=== PATIENT | male | born 1950 | race Caucasian/White ===

== ENCOUNTER → 2020-09-18 14:16 | Outpatient (REF) | payer MEDICARE, SELFPAY | LOC: ANHLAB 14:16 | PROVIDERS: PCP Internal Medicine; Visit Provider Nurse Practitioner | DX: C44.519 Basal cell carcinoma of skin of other part of trunk (principal) | CPT/HCPCS: 88305 ==

== ENCOUNTER → 2020-11-10 07:58 | Outpatient (REF) | payer MEDICARE, SELFPAY | LOC: ANHLAB 07:58 | PROVIDERS: PCP Internal Medicine; Visit Provider Nurse Practitioner | DX: C44.519 Basal cell carcinoma of skin of other part of trunk (principal) | CPT/HCPCS: 88305; 88331 ==

== ENCOUNTER 2021-07-06 14:03 | Outpatient (CLI) | payer MEDICARE, SELFPAY | END 2021-07-06 14:04 | disposition home or self-care (01) | PROVIDERS: PCP Internal Medicine; Visit Provider Internal Medicine | DX: H90.3 Sensorineural hearing loss, bilateral (principal) | CPT/HCPCS: 92557; 92567 ==

== ENCOUNTER 2022-04-12 08:00 | Outpatient (NON) | payer MEDICARE, SELFPAY | END 2022-04-12 08:01 | disposition home or self-care (01) | LOC: ANHLAB 04-13 14:33 | PROVIDERS: PCP Family Medicine; Visit Provider Nurse Practitioner | DX: C44.602 Unspecified malignant neoplasm of skin of right upper limb, including shoulder (principal) | CPT/HCPCS: 88305 ==

== ENCOUNTER 2022-04-19 10:26 | Outpatient (CLI) | payer MEDICARE, SELFPAY ==
[2022-04-19 19:08] LABS: Basophils Absolute Auto 0.1 K/mm3 (0.0-0.1); Basophils Percent Auto 1.1 % (0.2-1.2); Eosinophils Absolute Auto 0.2 K/mm3 (0-0.3); Hematocrit 46.8 % (42.0-52.0); Hemoglobin 15.8 g/dL (14.0-18.0); Immature Granulocyte Absolute 0.02 K/mm3 (0.00-0.031); Immature Granulocyte Percent A 0.3 % (0-0.5); Lymphocytes Absolute Auto 2.55 K/mm3 (0.9-3.2); Lymphocytes Percent Auto 38.7 % (18.3-44.2); Mean Corpuscular HGB Conc 33.8 g/dl (32-36); Mean Corpuscular Hemoglobin 30.9 pg (26-34); Mean Corpuscular Volume 91.4 fl (80-100); Mean Platelet Volume 9.2 fl (7.4-10.4); Monocytes Absolute Auto 0.5 K/mm3 (0.1-0.6); Monocytes Percent Auto 7.3 % (2.6-8.5); Neutrophils Absolute Auto 3.3 K/mm3 (1.3-6.7); Neutrophils Percent Auto 49.6 % (45.5-73.1); Platelet Count Result 285 k/mm3 (150-375); Red Blood Count 5.12 M/mm3 (4.6-6.20); Red Cell Distribution Width 12.9 % (11.5-14.5); White Blood Count 6.6 K/mm3 (4.5-10.0)
[2022-04-19 19:24] LABS: Alanine Aminotransferase 35 U/L (6-50); Alkaline Phosphatase 75 U/L (38-126); Anion Gap 5 mmol/L (8-16); Aspartate Amino Transferase 36 U/L (17-59); Bilirubin,Total 0.8 mg/dL (0.2-1.3); Blood Urea Nitrogen 15 mg/dL (9-20); Calcium 8.5 mg/dL (8.4-10.2); Carbon Dioxide 32 mmol/L (22-30); Chloride 101 mmol/L (98-107); Cholesterol 123 mg/dL (0-200); Estimated Glomerular Filt Rate > 60; Glucose 109 mg/dL (65-110); HDL Direct 37 mg/dL; Potassium 4.1 mmol/L (3.4-5.0); Sodium 138 mmol/L (137-145); Triglycerides 78 mg/dL (<150); Uric Acid 4.9 mg/dL (3.5-8.5)
[2022-04-19 19:38] LABS: LDL Cholesterol Direct 64 mg/dL
[2022-04-19 19:56] LABS: Prostate Specific Antigen 0.2 ng/mL (< OR = 4.0)
[2022-04-24 19:45] LABS: Testosterone Free 69.9 pg/mL (30.0-135.0); Testosterone Total 402 ng/dL (250-1100)
== END 2022-04-19 10:27 | disposition home or self-care (01) ==
LOC: ANHGOSHLAB 10:28
PROVIDERS: PCP Family Medicine; Visit Provider Family Medicine
DX: I10 Essential (primary) hypertension (principal); Z12.5 Encounter for screening for malignant neoplasm of prostate; M10.9 Gout, unspecified; E78.5 Hyperlipidemia, unspecified; R53.83 Other fatigue
CPT/HCPCS: 36415; 80053; 80061; 84153; 84402; 84403; 84550; 85025; G0103

== ENCOUNTER 2022-05-24 12:59 | Outpatient (NON) | payer MEDICARE, SELFPAY | END 2022-05-24 13:00 | disposition home or self-care (01) | PROVIDERS: PCP Family Medicine; Visit Provider Nurse Practitioner | DX: C44.612 Basal cell carcinoma of skin of right upper limb, including shoulder (principal) | CPT/HCPCS: 88305; 88331; 88332 ==

== ENCOUNTER 2022-09-07 11:59 | Outpatient (NON) | payer MEDICARE, SELFPAY | END 2022-09-07 12:00 | disposition home or self-care (01) | PROVIDERS: PCP Family Medicine; Visit Provider Nurse Practitioner | DX: C44.311 Basal cell carcinoma of skin of nose (principal) | CPT/HCPCS: 88305 ==

== ENCOUNTER 2022-09-20 13:07 | Outpatient (NON) | payer MEDICARE, SELFPAY | END 2022-09-20 13:08 | disposition home or self-care (01) | LOC: ANHLAB 13:08 | PROVIDERS: PCP Family Medicine; Visit Provider Nurse Practitioner | DX: C44.311 Basal cell carcinoma of skin of nose (principal) | CPT/HCPCS: 88305; 88331 ==

== ENCOUNTER 2023-10-31 15:41 | Emergency (ER) | payer MEDICARE, SELFPAY ==
[2023-10-31 15:56] VITALS: BP 132/79; PULSE 55; RESP 16; TEMP 36.4; O2SAT 97
--- NOTE | 2023-10-31 15:58 | ED.URI ---
HPI - URI/Sore Throat General Chief Complaint: Upper Respiratory Infection Stated Complaint: SORE THROAT Time Seen by Provider: 10/31/23 15:59 Source: patient, RN notes reviewed and old records reviewed Mode of arrival: ambulatory Limitations: no limitations History of Present Illness HPI Narrative: 73 year old male [facility] with complaints of having a sore throat with some blistery sores in his mouth on the back of his tongue for the pat 2 days. Patient reports about 8 days ago he had a sore throat and felt bad which lasted for 2 days and then went away till the sore throat returned 2 days ago. Patient reports no fevers or chills and has not taken any OTC medication for his symptoms. MD elicited complaint: sore throat and other (lesions on tongue) Onset (ago): day(s) (2) Severity: mild Pain scale (0-10): 2 Able to tolerate fluids by mouth: Yes Treatments prior to arrival: none Related Data Home Medications Medication Instructions Recorded Confirmed famciclovir 500 mg tablet 500 mg PO TID PRN Cold Sores 10/31/23 10/31/23 Allergies Allergy/AdvReac Type Severity Reaction Status Date / Time Penicillins Allergy Mild Rash Verified 10/31/23 15:50 Review of Systems Review of Systems: CONSTITUTIONAL: Denies malaise, chills, sweats, or fever. EYES: Denies visual changes, redness, or discharge. ENT: Reports no rhinorrhea, congestion, sinus pain, no otalgia and positive for sore throat and lesions on back of tongue. CARDIOVASCULAR: Denies chest pain, palpitations, or edema. RESPIRATORY: Reports cough.? Denies dyspnea. GASTROINTESTINAL: Denies abdominal pain, nausea, vomiting, diarrhea SKIN: Denies rash or itching. MUSCULOSKELETAL: Denies myalgia. NEUROLOGIC: Denies headache. All systems reviewed & are unremarkable except as noted in HPI and below PMFSH Past Medical History Medical History Gout, unspecified High cholesterol History of basal cell carcinoma (BCC) left faith removed and from back HTN (hypertension) Screening for thyroid disorder Surgical History Surgical History H/O uvulectomy History of tonsillectomy Family History Family History Mother Hypertension Sibling Patient's sister is in good health Father Family history of diabetes mellitus in first degree relative, Onset Age: 75 Family history of heart disease in male family member before age 55, Onset Age: 75 Patient's father is , Onset Age: 75 Other Asthma Diabetes mellitus Family history of cardiovascular disease Family history of osteoporosis Social History Social History Social History: caffeine 10oz coffee Smoking status: Never smoker Second hand tobacco smoke exposure: No Alcohol intake: current Drinks per week: 15 Alcohol use details: wine, beer, bourbon Substance use: never Substance use type: does not use Do You Feel Safe in your Home?: Yes Lack of Transportation: No Lack of Food: Never True Current Housing: I Have Housing Concerned About Future Housing: No Difficulty Paying Gas/Electric Bills: No Difficulty Paying for Meds: No Currently Unemployed: No Education: Bachelor's Degree Difficulty w/ Childcare or Family Care: No Comments At time of signature, agree with nursing past medical, surgical, social and family history. There is no relevant family history pertinent to the presenting complaint Exam Narrative: GENERAL: Well-appearing, well-nourished, and in no acute distress. HEAD: Normocephalic EYES: PERRLA, conjunctivae clear ENT: Nares clear, turbinates edematous and erythematous, clear discharge. Mucous membranes moist. TM pearly urrutia with dull light reflex bilaterally; no tragal tenderness. Oropharynx e
[2023-10-31 16:21] LABS: EDSTREPNEGPOS1 Presumptive Negative
== END 2023-10-31 16:20 | disposition home or self-care (01) ==
PROVIDERS: Emergency Provider Registered Nurse; PCP Family Medicine
DX: K13.70 Unspecified lesions of oral mucosa (principal); J02.9 Acute pharyngitis, unspecified; M10.9 Gout, unspecified; E78.00 Pure hypercholesterolemia, unspecified; I10 Essential (primary) hypertension; Z85.828 Personal history of other malignant neoplasm of skin
CPT/HCPCS: 87081; 87880; 99213; G0463

== ENCOUNTER 2025-01-23 00:23 | Day surgery (SDC) | payer MEDICARE, SELFPAY ==
--- OUTSIDE RECORDS SUMMARY | 2022-05-11 09:47 | XMS_ITS | Continuity of Care Document ---
Author Organization [facility] Address [address] [place] [address] Phone Care Team Providers Care Manufacturing Controller Name Role Phone Rivera Mittal PT Unavailable Unavailable Procedures Procedure Date Therapeutic Activities Neuromuscular Re-Ed Therapeutic Exercise Doc neg elder mal no plan PT Evaluation Low Complexity Therapeutic Activities Neuromuscular Re-Ed Advance Directives Directive Yes / No Effective Date File Name No Information Encounters Encounter Description Practice Location Reason(s) For Visit Diagnoses Date Provider Providers Copied on Encounter [facility], [id number], tel:[phone] [place] No Information 3 Kyrie Stafford. . [facility], [id number], [place] tel:[phone] [place] No Information 2 Ladanglkeyonna De Oliveira. . Referring Provider: Brian Shah, [address] [place], [address]. tel:[phone] [facility] [address], [id number], tel:[phone] [place] No Information 2 Kyrie Stafford. . Referring Provider: Brian Shah, [address] [facility], [place], [address]. tel:[phone] Family History Family Member Type Diagnosis Age At Onset No Information Payers Payer name Insurance type Covered republican ID Authoriza ticheryl(s) Medicare [place] MB [id number] Social History Type Description Quantity Date Captured Comments Sex Male Smoking Status No Information Chief Complaint And Reason For Visit No Information Reason For Referral Reason For Referral No Information History Of Present Illness Encounter Date Complaint History Of Prese nt Illness No Information Functional Status Date Functional Assessmen t No Information Instructions Date Instruction Additional Infor mation Giving encouragement to exercise Related to Overweight Giving encouragement to exercise Related to Overweight Assessments Type Assessment Date No Information Patient Care Teams Name Effective Dates (start - stop) Status Members No Information
[2025-01-07 14:39] VITALS: BMI 28.3
--- OUTSIDE RECORDS SUMMARY | 2025-01-23 00:27 | XMS_ITS | Encounter Summary ---
Author Organization [facility] Address [address] [place] [address] Care Team Providers Care Airplane Pilot Supervisor Name Role Phone Desean Murray MD Primary Care Provider [phone] Encounter Details Date Type Department Care Team (Late st Contact Info) Description 10/02/[address] 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
--- OUTSIDE RECORDS SUMMARY | 2025-01-23 00:27 | XMS_ITS | Encounter Summary ---
Author Organization [facility] Address [address] [place] [address] Care Team Providers Care Unemployment Specialist Name Role Phone Desean Murray MD Primary Care Provider [phone] Encounter Details Date Type Department Care Team (Late st Contact Info) Description 11/29/2000 Outpatient Historical [facility] Internal Medicine [facility] [address] [place] [address] [place] [address] [place] [address] Social History Tobacco Use Types Packs/Day Years Used Date Smoking Tobacco: Never Assessed Sex and Gender Information Value Date Recorded Sex Assigned at Not on file 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
--- OUTSIDE RECORDS SUMMARY | 2025-01-23 00:27 | XMS_ITS ---
Author Organization Unknown ENCOUNTERS Encounter Performer Location Date Diagnosis Diagnosis Status Outpatient [facility] [address] [place] [address] [phone] [place] Outpatient [facility] [address] [place] [address] [phone] [place] Outpatient [facility] [address] [place] [address] [id number] [place] Outpatient [facility] [address] [place] [address] [phone] [place] Outpatient [facility] [address] [place] [address] [phone] [place] Outpatient [facility] [address] [place] [address] [phone] [place] *Note: Encounters from your own facility or health system may be excluded. Allergies, Adverse Reactions, Alerts Allergen Type Severity Identification Date Penicillins drug allergy 2 [id number] Medications Name Date Quantity Days Supplied GPI Number
--- OUTSIDE RECORDS SUMMARY | 2025-01-23 00:27 | XMS_ITS | Encounter Summary ---
Author Organization [facility] Address 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
--- OUTSIDE RECORDS SUMMARY | 2025-01-23 00:27 | XMS_ITS | Encounter Summary ---
Author Organization [facility] Address 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
--- OUTSIDE RECORDS SUMMARY | 2025-01-23 00:27 | XMS_ITS | Encounter Summary ---
Author Organization [facility] Address 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
--- OUTSIDE RECORDS SUMMARY | 2025-01-23 00:27 | XMS_ITS | Encounter Summary ---
Author Organization [facility] Address 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
--- OUTSIDE RECORDS SUMMARY | 2025-01-23 00:27 | XMS_ITS | Encounter Summary ---
Author Organization [facility] Address [address] [place] [address] Care Team Providers Care High School Academic Coach Name Role Phone Desean Murray MD Primary Care Provider [phone] Encounter Details Date Type Department Care Team (Late st Contact Info) Description 03/22/2003 Outpatient Historical [facility] Internal Medicine [facility] [address] [place] [address] [place] [address] [place] [address] Social History Tobacco Use Types Packs/Day Years Used Date Smoking Tobacco: Never Assessed Sex and Gender Information Value Date Recorded Sex Assigned at Not on file 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
--- OUTSIDE RECORDS SUMMARY | 2025-01-23 00:27 | XMS_ITS | Clinical Summary ---
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 Gender Identity Not on file Sexual Orientation Not on file Plan of Treatment Health Maintenance Due Date Last Done Comments DTAP/TDAP/TD VACCINES (1 - Tdap) 1969 COLORECTAL SCREENING 1995 Colorectal Cancer Screening 1995 FIT-DNA Q 3 years 1995 FIT/FOBT Q 1 year 1995 Flex Sig/CT Colonography Q 5 years 1995 PNEUMOCOCCAL VACCINE 50+ YEARS (1 of 1 - PCV) 06/17/19 ZOSTER VACCINE (1 of 2) 2000 INFLUENZA VACCINE (#1) 2024 RSV VACCINE (60+ or ) (1 - 1-dose 75+ series) 2025 Care Teams Radio Communication Coordinator Relationship Specialty [place] [address] [place] [address] PCP - General 08/09/03
--- OUTSIDE RECORDS SUMMARY | 2025-01-23 00:27 | XMS_ITS | Encounter Summary ---
Author Organization [facility] Address 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
[2025-01-23 08:47] VITALS: BP 135/79; PULSE 55; RESP 17; TEMP 36.7; O2SAT 97; BMI 28.3
[2025-01-23] MEDS: LACTATED RINGERS 1,000 ML 150 ML IV CONT (09:00)
--- NOTE | 2025-01-23 10:09 | P.HP_ITS ---
H&P: HPI History of Present Illness Date/Time: 01/23/25 10:09 Chief Complaint: History of colon polyps Narrative: The patient has a history of colonic polyps, the last colonoscopy was 5 years ago. Review of Systems Review of Systems: All systems reviewed & are unremarkable except as noted in HPI and below PMFSH Past Medical History Medical History History of basal cell carcinoma (BCC) left hinduism removed and from back Screening for thyroid disorder Gout, unspecified HTN (hypertension) High cholesterol Surgical History Surgical History H/O uvulectomy History of tonsillectomy Family History Family History Mother Hypertension Sibling Patient's sister is in good health Father Family history of diabetes mellitus in first degree relative, Onset Age: 75 Family history of heart disease in male family member before age 55, Onset Age: 75 Patient's father is , Onset Age: 75 Other Asthma Diabetes mellitus Family history of cardiovascular disease Family history of osteoporosis Social History Social History Social History: caffeine 10oz coffee Smoking status: Never smoker Second hand tobacco smoke exposure: No Alcohol intake: current Drinks per week: 10 Alcohol use details: wine, beer, bourbon Substance use: never Substance use type: does not use Do You Feel Safe in your Home?: Yes Lack of Transportation: No Lack of Food: Never True Current Housing: I Have Housing Concerned About Future Housing: No Difficulty Paying Gas/Electric Bills: No Difficulty Paying for Meds: No Currently Unemployed: No Education: Bachelor's Degree Difficulty w/ Childcare or Family Care: No Living arrangements: with family Spiritual care concerns: No Meds Home Medications and Allergies Home Medications ?Medication ?Instructions ?Recorded ?Confirmed ?Type famciclovir 500 mg tablet 500 mg PO TID PRN Cold Sores 10/31/23 01/07/25 History azelastine 137 mcg (0.1 %) nasal 1 spray intranasal Q1 2H PRN 04/13/24 01/23/25 History spray congestion famotidine 20 mg tablet 20 mg PO DAILY 04/13/2401/01 History metoprolol tartrate 25 mg tablet 25 mg PO DAILY #90 ta bs 07/20/24 01/23/25 Rx allopurinol 300 mg tablet 300 mg PO DAILY #90 tabs 01/23/25 Rx testosterone cypionate 100 mg/mL 50 mg IM ONCE 5 01/07/25 History intramuscular oil tadalafil 20 mg tablet (Cialis) 20 mg PO DAILY PRN sex ual activity 11/05/24 01/07/25 Rx #30 tabs atorvastatin 10 mg tablet 10 mg PO DAILY #90 tabs 12/0101/23/25 Rx hydrochlorothiazide 25 mg tablet 25 mg PO DAILY #90 ta bs 01/03/25 01/23/25 Rx Allergies Allergy/AdvReac Type Severity Reaction Status Date / Time Penicillins Allergy Mild Rash Verified 01/23/25 08:45 Vital Signs Vital Signs - 24 hr 01/23/25 08:47 Temperature 98.0 F Pulse Rate 55 L Respiratory Rate 17 Blood Pressure 135/79 Pulse Oximetry 97 Oxygen Delivery Room Air Exam Const: General: cooperative and healthy appearing Resp: Effort & Inspection: normal respiratory effort and able to speak in complete sentences Auscultation: clear to auscultation bilaterally Cardio: Rate: regular rate Rhythm: regular rhythm GI: Inspection: normal to inspection GI Palp: No No hepatosplenomegaly present Auscultation: normal bowel sounds Rectal Exam: deferred Skin: General skin exam: normal color Psych: Appearance: grossly normal Mental Status: mental status grossly normal Assessment and Plan Assessment and plan (1) Screening for colon cancer: Code(s): Z12.11 - Encounter for screening for malignant neoplasm of colon Status: Acute Assessment and Plan: The patient is deemed a good candidate for the procedure. Consent signed. Will proceed.
--- NOTE | 2025-01-23 10:28 | S_PTH ---
PATIENT: Anirudh Albert LOC: [facility] U#:[id number] AGE/SX: 74/M ROOM: RE01/23/[address]: Merlin Miller MD : 1950 BED: DIS: 01/23/2025 SPEC #: [id number] RECD: 01/23/25 11:42 STATUS: BERNICE REQ #: [id number] KENNETH: 01/23/25 10:[address]: Merlin Miller DEPT: [facility] Surgical RECD BY: Anh Rosenthal ENTERED: 01/23/25 11:42 SP TYPE: Surgical OTHR DR: Dominique Love, ERASTO Tissues: A - Colon Polypectomy B - Colon Polypectomy Procedures: Hematoxylin and Eosin Stain Gross and Microscopic Level 4
[2025-01-23 10:29] VITALS: BP 109/62; PULSE 58; RESP 18; O2SAT 97
[2025-01-23 10:39] VITALS: BP 133/81; PULSE 62; RESP 23; O2SAT 97
[2025-01-23 10:49] VITALS: BP 136/87; PULSE 57; RESP 22; O2SAT 99
--- NOTE | 2025-02-25 18:39 | WPDANESEPPF ---
Anes - Initial Pre Proc Eval Procedure: Operation Date: 01/23/25 10:00 Proposed Procedures p Screening Colonoscopy - Merlin Miller MD Date/Time: 02/25/25 18:39 Surgeon: Merlin Miller MD Pre Op Diagnosis: Personal history of colon polyps, unspecified Patient Data Age: 74 Gender: M Height: 1.75 m Weight: 87 kg Last Vital Signs Temp 36.7 C 01/23/25 08:47 Pulse 57 L 01/23/25 10:49 Resp 22 H 01/23/25 10:49 BP 136/87 01/23/25 10:49 Pulse Ox 99 01/23/25 10:49 O2 Del Method Room Air 01/23/25 10:49 Allergies Allergy/AdvReac Type Severity Reaction Status Date / Time Penicillins Allergy Mild Rash Verified 01/23/25 08:45 Home Medications ?Medication ?Instructions ?Recorded ?Confirmed ?Type famciclovir 500 mg tablet 500 mg PO TID PRN Cold Sores 10/31/23 01/07/25 History azelastine 137 mcg (0.1 %) nasal 1 spray intranasal Q12H PRN 04/13/24 01/23/25 History spray congestion famotidine 20 mg tablet 20 mg PO DAILY 04/13/24 01/23/25 History allopurinol 300 mg tablet 300 mg PO DAILY #90 tabs 09/17/24 01/23/25 Rx testosterone cypionate 100 mg/mL 50 mg IM ONCE 10/18/24 01/07/25 History intramuscular oil tadalafil 20 mg tablet (Cialis) 20 mg PO DAILY PRN sexual activity 11/05/24 01/07/25 Rx #30 tabs atorvastatin 10 mg tablet 10 mg PO DAILY #90 tabs 12/21/24 01/23/25 Rx hydrochlorothiazide 25 mg tablet 25 mg PO DAILY #90 tabs 01/03/25 01/23/25 Rx metoprolol tartrate 25 mg tablet 25 mg PO DAILY #90 tabs 02/22/25 Rx Patient hx anesthesia problems: none Family hx anesthesia problems: none Results Review: All pre-operative results and documents have been reviewed as part of the pre-operative evaluation. [facility] Past Medical History Medical History History of basal cell carcinoma (BCC) left adventist removed and from back Screening for thyroid disorder Gout, unspecified HTN (hypertension) High cholesterol Surgical History Surgical History H/O uvulectomy History of tonsillectomy Family History Family History Mother Hypertension Sibling Patient's sister is in good health Father Family history of diabetes mellitus in first degree relative, Onset Age: 75 Family history of heart disease in male family member before age 55, Onset Age: 75 Patient's father is , Onset Age: 75 Other Asthma Diabetes mellitus Family history of cardiovascular disease Family history of osteoporosis Social History Social History Social History: caffeine 10oz coffee Smoking status: Never smoker Second hand tobacco smoke exposure: No Alcohol intake: current Drinks per week: 10 Alcohol use details: wine, beer, bourbon Substance use: never Substance use type: does not use Do You Feel Safe in your Home?: Yes Lack of Transportation: No Lack of Food: Never True Current Housing: I Have Housing Concerned About Future Housing: No Difficulty Paying Gas/Electric Bills: No Difficulty Paying for Meds: No Currently Unemployed: No Education: Bachelor's Degree Difficulty w/ Childcare or Family Care: No Living arrangements: with family Spiritual care concerns: No Anes - Eval Final PreProcedure Day of Procedure 02/25/25 18:39 Patient weight: overweight ASA classification: III Emergent: no Anesthetic plan: proceed Anesthesia type and monitoring: general GIVS and standard monitoring Results Review: All pre-operative results and documents have been reviewed as part of the pre-operative evaluation. Informed Consent: The patient's anesthetic plan and its attendant risks and benefits were discussed with the patient/family/POA. Questions were solicited and answers provided to the satisfaction of the patient/family/POA.
== END 2025-01-23 10:58 | disposition home or self-care (01) ==
PROVIDERS: PCP Nurse Practitioner; Referring Provider Internal Medicine; Visit Provider Internal Medicine Gastroenterology
PROC: 0DJD8ZZ Inspection of Lower Intestinal Tract, Via Natural or Artificial Opening Endoscopic (ICD-10-PCS; CPT 45378; principal; 2025-01-23 10:00)
DX: Z12.11 Encounter for screening for malignant neoplasm of colon (principal); D12.3 Benign neoplasm of transverse colon; D12.5 Benign neoplasm of sigmoid colon; K64.8 Other hemorrhoids; K57.30 Diverticulosis of large intestine without perforation or abscess without bleeding; I10 Essential (primary) hypertension; E78.00 Pure hypercholesterolemia, unspecified; Z98.890 Other specified postprocedural states; Z85.828 Personal history of other malignant neoplasm of skin; Z82.49 Family history of ischemic heart disease and other diseases of the circulatory system
CPT/HCPCS: 45378; 88305; J0461; J1596; J2704; J7120